=== PATIENT | female | born 1990 | race Caucasian/White ===

== ENCOUNTER 2022-10-02 20:00 | Emergency (ER) | payer OTHER ==
[~2022-10-02] VITALS: Ht 162.6 cm; Wt 68.2 kg
[2022-10-02 20:12] VITALS: BP 122/85; TEMP 98.4
[2022-10-02 22:06] VITALS: PULSE 74
[2022-10-09] MEDS ORDERED: NORCO 325 MG-51 TAB PO (21:34)
== END 2022-10-02 22:23 | disposition home or self-care (01) ==
LOC: COL.ER 20:00
DX: S16.1XXA Strain of muscle, fascia and tendon at neck level, initial encounter (principal); S00.93XA Contusion of unspecified part of head, initial encounter; V89.2XXA Person injured in unspecified motor-vehicle accident, traffic, initial encounter; Y92.410 Unspecified street and highway as the place of occurrence of the external cause
CPT/HCPCS: Q9967